=== PATIENT | female | born 1965 | race Caucasian/White ===

== ENCOUNTER 2016-07-01 09:53 | Emergency (ER) | payer MEDICAID, OTHER ==
[2016-07-01 10:07] VITALS: BP 184/98
[2016-07-01] MEDS ORDERED: Ketorolac 60 MG/2 ML SDV IM ONE (10:12)
--- NOTE | 2016-07-01 10:19 | EDM.PDOC ---
ED HPI LOWER BACK PAIN/INJURY - General Chief Complaint: Back Pain or Injury Stated Complaint: BACK PAIN Time Seen by Provider: 07/01/16 09:58 Source of Information: Reports: Patient History Limitations: Reports: No limitations - History of Present Illness INITIAL COMMENTS - FREE TEXT/NARRATIVE: History of present illness: [] Patient has chronic back pain with sciatica going down her right leg and was shoveling this no yesterday exacerbating her pain. She denies any urinary or fecal incontinence, difficulty walking, numbness or tingling of her lower extremity. She took 400 mg of ibuprofen without much relief. Review of systems: As per history of present illness and below otherwise all systems reviewed and negative. Past medical history: As per history of present illness and as reviewed below otherwise noncontributory. Surgical history: As per history of present illness and as reviewed below otherwise noncontributory. Social history: No reported history of drug or alcohol abuse. Family history: As per history of present illness and as reviewed below otherwise noncontributory. Physical exam: General: Well developed, well nourished in NAD HEENT: Atraumatic, normocephalic, pupils reactive, negative for conjunctival pallor or scleral icterus, mucous membranes moist, throat clear, neck supple, nontender, trachea midline. Lungs: Clear to auscultation, breath sounds equal bilaterally, chest nontender. Heart: S1S2, regular, negative for clicks, rubs, or JVD. Abdomen: Soft, nondistended, nontender. Negative for masses or hepatosplenomegaly. Negative for costovertebral tenderness. Pelvis: Stable nontender. Genitourinary: Deferred. Rectal: Deferred. Extremities: Atraumatic, negative for cords or calf pain. Neurovascular unremarkable. Neuro: Awake, alert, oriented. Cranial nerves II through XII unremarkable. Cerebellum unremarkable. Motor and sensory unremarkable throughout. Exam nonfocal. Diagnostics: [] Therapeutics: [] Toradol, Flexeril and in the ED Impression: [] Chronic Low back pain with right-sided sciatica, with exacerbation Plan: [] Increase ibuprofen to 800 mg every 6 hours and Flexeril for spasm followup with primary care physician Definitive disposition and diagnosis as appropriate pending reevaluation and review of above. - Related Data Allergies/ADRs: Allergies Allergy/AdvReac Type Severity Reaction Status Date / Time No Known Allergies Allergy Verified 07/01/16 10:02 Home Meds: Home Meds Albuterol [Ventolin HFA] 1 puff INH DAILY PRN 12/26/13 [History] Cetirizine [ZyrTEC] 1 tab PO DAILY 12/26/13 [History] Lisinopril 1 tab PO DAILY 12/26/13 [History] Cyclobenzaprine [Flexeril] 10 mg PO BID PRN #16 tablet 07/01/16 [Rx] Past Medical History HEENT History: Reports: None Respiratory History: Reports: Asthma Neurological History: Reports: Migraines - Infectious Disease History Infectious Disease History: Reports: Chicken pox - Past Surgical History HEENT Surgical History: Reports: Adenoidectomy Respiratory Surgical History: Reports: None GI Surgical History: Reports: Cholecystectomy Neurological Surgical History: Reports: None Musculoskeletal Surgical History: Reports: Carpal tunnel Social & Family History - Family History Family Medical History: Noncontributory - Tobacco Use Smoking Status *Q: Current Every Day Smoker Years of Tobacco use: 29 Packs/Tins Daily: 1 - Caffeine Use Caffeine Use: Reports: Coffee Caffeine Use Comment: 2 drink/day - Alcohol Use Days Per Week of Alcohol Use: 1 Number of Drinks Per Day: 3 Total Drinks Per Week: 3 - Recreational Drug Use Recreational Drug Use: No ED ROS GENERAL - Review of Systems Review Of Systems: See Below (See history of present illness) ED EXAM,LOWER BACK PAIN/INJURY - Physical Exam Exam: See Below (See history of present illness) Course - Vital Signs Last Recorded V/S: Last Vital Signs Temp 36.6 C 07/01/16 10:03 Pulse 86 07/01/16 10:03 Resp 16 07/01/16 10:03 BP 184/98 H 07/01/16 10:03 Pulse Ox 96 07/01/16 10:03 - Orders/Labs/Meds Orders: Active Orders 24 hr Category Date Time Status Ketorolac [Toradol] Med 07/01/16 10:12 Once 60 mg IM ONETIME ONE Medication Orders Ketorolac Tromethamine (Toradol) 60 mg IM ONETIME ONE Stop: 07/01/16 10:13 Meds: Medications Generic Name Dose Route Start Last Admin Trade Name Freq PRN Reason Stop Dose Admin Ketorolac Tromethamine 60 mg 07/01/16 10:12 Toradol IM 07/01/16 10:13 ONETIME ONE Departure - Departure Time of Disposition: 10:25 Disposition: Home, Self-Care 01 Condition: good Clinical Impression: Acute exacerbation of chronic low back pain Forms: ED Department Discharge Additional Instructions: The following information is given to patients seen in the emergency department who are being discharged to home. This information is to outline your options for follow-up care. We provide all patients seen in our emergency department with a follow-up referral. The need for follow-up, as well as the timing and circumstances, are variable depending upon the specifics of your emergency department visit. If you don't have a primary care physician on staff, we will provide you with a referral. We always advise you to contact your personal physician following an emergency department visit to inform them of the circumstance of the visit and for follow-up with them and/or the need for any referrals to a consulting specialist. The emergency department will also refer you to a specialist when appropriate. This referral assures that you have the opportunity for follow-up care with a specialist. All of these measure are taken in an effort to provide you with optimal care, which includes your follow-up. Under all circumstances we always encourage you to contact your private physician who remains a resource for coordinating your care. When calling for follow-up care, please make the office aware that this follow-up is from your recent emergency room visit. If for any reason you are refused follow-up, please contact the [facility] Emergency Department at and asked to speak to the emergency department charge nurse. Motrin 800 mg every 6 hours as needed for pain, Flexeril 10 mg every 8 hours when necessary 16 tablets no refills [facility] [address] [place] [id number] - My Orders Last 24 Hours: My Active Orders 07/01/16 10:12 Ketorolac [Toradol] 60 mg IM ONETIME ONE - Assessment/Plan Last 24 Hours: My Active Orders 07/01/16 10:12 Ketorolac [Toradol] 60 mg IM ONETIME ONE
== END 2016-07-01 10:40 | disposition home or self-care (01) ==
LOC: MW.ED 09:53
DX: M54.41 Lumbago with sciatica, right side (principal); M79.604 Pain in right leg; F17.210 Nicotine dependence, cigarettes, uncomplicated; Z79.899 Other long term (current) drug therapy; Z90.89 Acquired absence of other organs; Z98.890 Other specified postprocedural states
CPT/HCPCS: 96372; 99283; J1885

== ENCOUNTER 2017-05-25 13:15 | Emergency (ER) | payer BC ==
--- NOTE | 2017-05-25 13:25 | EDM.PDOC ---
ED HPI GENERAL MEDICAL PROBLEM - General Chief Complaint: Respiratory Problem Stated Complaint: FLU-LIKE SYMPTOMS Time Seen by Provider: 05/25/17 13:25 Source of Information: Reports: Patient History Limitations: Reports: No Limitations - History of Present Illness INITIAL COMMENTS - FREE TEXT/NARRATIVE: HISTORY AND PHYSICAL: History of present illness: Patient is a 52-year-old female who presents to the emergency room today with complaints of body aches, fever, cough 2 days. She states that she has not tried any [id number] products. Denies any abdominal pain, nausea, vomiting or diarrhea. Personal history of asthma and has albuterol inhaler which she uses as needed. She has had the flu vaccine this year. Does have a history of smoking, current. Review of systems: As per history of present illness and below otherwise all systems reviewed and negative. Past medical history: As per history of present illness and as reviewed below otherwise noncontributory. Surgical history: As per history of present illness and as reviewed below otherwise noncontributory. Social history: No reported history of drug or alcohol abuse. Family history: As per history of present illness and as reviewed below otherwise noncontributory. Physical exam: Gen.: Well-developed and well-nourished 52-year-old female. Alert and oriented. Nontoxic appearing and in no acute distress. HEENT: Atraumatic, normocephalic, pupils reactive, negative for conjunctival pallor or scleral icterus, mucous membranes moist, throat clear, neck supple, nontender, trachea midline. Lungs: Clear to auscultation, breath sounds equal bilaterally, chest nontender. Heart: S1S2, regular, negative for clicks, rubs, or JVD. Abdomen: Soft, nondistended, nontender. Negative for masses or hepatosplenomegaly. Negative for costovertebral tenderness. Pelvis: Stable nontender. Genitourinary: Deferred. Rectal: Deferred. Extremities: Atraumatic, moves all extremities per self, negative for cords or calf pain. Neurovascular unremarkable. Neuro: Awake, alert, oriented. Cranial nerves II through XII unremarkable. Cerebellum unremarkable. Motor and sensory unremarkable throughout. Exam nonfocal. Patient's oxygen saturation on room air is 93-94%. After DuoNeb O2 is 96%. The influenza and chest x-ray are negative. Due to the patient's history of asthma and smoking and will treat her with a Z-Phillip and Medrol Dosepak. She does have an inhaler have instructed her to use this routinely over the next couple days. She voices understanding and is agreeable to plan of care she denies any questions at this time. Diagnostics: Influenza, chest x-ray Therapeutics: Sri Impression: #1 viral illness #2 Bronchitis Plan: 1. Please take the Z-Phillip and Medrol dosepak as directed. 2. Please use your inhaler routinely over the next 2-3 days. You may then take as needed. 3. Follow-up with your primary care provider in the next 1-2 days. Return to the ED as needed and as discussed. Definitive disposition and diagnosis as appropriate pending reevaluation and review of above. Duration: Day(s): Location: Reports: Chest body aches Pain Score (Numeric/FACES): 7 - Related Data Allergies Allergy/AdvReac Type Severity Reaction Status Date / Time No Known Allergies Allergy Verified 05/25/17 13:30 Home Meds: Home Meds Albuterol [Ventolin HFA] 1 puff INH DAILY PRN 12/26/13 [History] Cetirizine [ZyrTEC] 1 tab PO DAILY 12/26/13 [History] Lisinopril 1 tab PO DAILY 12/26/13 [History] Cyclobenzaprine [Flexeril] 10 mg PO BID PRN #16 tablet 07/01/16 [Rx] Past Medical History HEENT History: Reports: None Respiratory History: Reports: Asthma Neurological History: Reports: Migraines - Infectious Disease History Infectious Disease History: Reports: Chicken Pox - Past Surgical History Musculoskeletal Surgical History: Reports: Carpal Tunnel Social & Family History - Family History Family Medical History: Noncontributory - Tobacco Use Smoking Status *Q: Current Every Day Smoker Years of Tobacco use: 29 Packs/Tins Daily: 1 - Caffeine Use Caffeine Use: Reports: Coffee Caffeine Use Comment: 2 drink/day - Alcohol Use Days Per Week of Alcohol Use: 1 Number of Drinks Per Day: 3 Total Drinks Per Week: 3 - Recreational Drug Use Recreational Drug Use: No ED ROS GENERAL - Review of Systems Review Of Systems: ROS reveals no pertinent complaints other than HPI. ED EXAM, GENERAL - Physical Exam Exam: See Below (See dictation) Course - Vital Signs Last Recorded V/S: Last Vital Signs Temp 99.2 F 05/25/17 13:30 Pulse 119 H 05/25/17 13:30 Resp 18 05/25/17 13:30 BP 141/85 H 05/25/17 13:30 Pulse Ox 94 L 05/25/17 13:30 - Orders/Labs/Meds Orders: Active Orders 24 hr Category Date Time Status RT Aerosol Therapy [RC] ASDIRECTED Care 05/25/17 13:35 Active Meds: Medications Discontinued Medications Generic Name Dose Route Start Last Admin Trade Name Freda PRN Reason Stop Dose Admin Albuterol/Ipratropium 3 ml 05/25/17 13:35 05/25/17 13:38 Duoneb 3.0-0.5 Mg/3 Ml NEB 05/25/17 13:36 3 ml ONETIME ONE Administration Albuterol/Ipratropium Confirm 05/25/17 13:36 Duoneb 3.0-0.5 Mg/3 Ml Administered 05/25/17 13:37 Dose 3 ml .ROUTE .STK-MED ONE Departure - Departure Time of Disposition: 14:43 Disposition: Home, Self-Care 01 Clinical Impression: Viral illness, Bronchitis - Discharge Information Referrals: Yanci Tinoco [employer] [Primary Care Provider] - Forms: ED Department Discharge Additional Instructions: My general discharge The following information is given to patients seen in the emergency department who are being discharged to home. This information is to outline your options for follow-up care. We provide all patients seen in our emergency department with a follow-up referral. The need for follow-up, as well as the timing and circumstances, are variable depending upon the specifics of your emergency department visit. If you don't have a primary care physician on staff, we will provide you with a referral. We always advise you to contact your personal physician following an emergency department visit to inform them of the circumstance of the visit and for follow-up with them and/or the need for any referrals to a consulting specialist. The emergency department will also refer you to a specialist when appropriate. This referral assures that you have the opportunity for follow-up care with a specialist. All of these measure are taken in an effort to provide you with optimal care, which includes your follow-up. Under all circumstances we always encourage you to contact your private physician who remains a resource for coordinating your care. When calling for follow-up care, please make the office aware that this follow-up is from your recent emergency room visit. If for any reason you are refused follow-up, please contact the [facility] Emergency Department at and asked to speak to the emergency department charge nurse. [facility] [place] [id number] 1. Please take the Z-Phillip and Medrol dosepak as directed. 2. Please use your inhaler routinely over the next 2-3 days. You may then take as needed. 3. Follow-up with your primary care provider in the next 1-2 days. Return to the ED as needed and as discussed. - My Orders Last 24 Hours: My Active Orders 05/25/17 13:35 RT Aerosol Therapy [RC] ASDIRECTED - Assessment/Plan Last 24 Hours: My Active Orders 05/25/17 13:35 RT Aerosol Therapy [RC] ASDIRECTED
[2017-05-25] MEDS ORDERED: Albuterol/Ipratropium 3.0-0.5 MG/3 ML Neb Soln NEB ONE (13:35)
[2017-05-25] MEDS ORDERED: Albuterol/Ipratropium 3.0-0.5 MG/3 ML Neb Soln ONE (13:36)
--- NOTE | 2017-05-25 14:29 | CR ---
PA and lateral chest Clinical history: Chest pain and shortness of breath Comparison: prior chest x-ray December 26, 2013 Findings: The costophrenic angles are clear. The cardiac mediastinum is normal and the lungs are joyce r. Given history of chest pain there is no pneumothorax. Impression: Normal chest
[2017-05-25 15:19] VITALS: BP 131/78
== END 2017-05-25 15:00 | disposition home or self-care (01) ==
LOC: MW.ED 13:15
DX: J40 Bronchitis, not specified as acute or chronic (principal); B34.9 Viral infection, unspecified; F17.210 Nicotine dependence, cigarettes, uncomplicated; Z79.899 Other long term (current) drug therapy
CPT/HCPCS: 71046; 71046-26; 87804; 94640; 99283-25

== ENCOUNTER 2019-07-18 18:32 | Emergency (ER) | payer BC ==
[2019-07-18 18:49] VITALS: BP 172/92; PULSE 85
--- NOTE | 2019-07-18 19:19 | EDM.PDOC ---
ED HPI GENERAL MEDICAL PROBLEM - General Chief Complaint: Lower Extremity Injury/Pain Stated Complaint: SICK Time Seen by Provider: 07/18/19 19:15 Source of Information: Reports: Patient History Limitations: Reports: No Limitations - History of Present Illness INITIAL COMMENTS - FREE TEXT/NARRATIVE: HISTORY AND PHYSICAL: History of present illness: Patient is a 54-year-old female presents to the ED With complaint of nail to her foot. Patient states she stepped on a nail or screw that went through her shoe and punctured the bottom of her left foot. Patient states she is not UTD on tetanus. Patient is diabetic Review of systems: As per history of present illness and below otherwise all systems reviewed and negative. Past medical history: As per history of present illness and as reviewed below otherwise noncontributory. Surgical history: As per history of present illness and as reviewed below otherwise noncontributory. Social history: No reported history of drug or alcohol abuse. Family history: As per history of present illness and as reviewed below otherwise noncontributory. Physical exam: General: Patient sitting comfortably in no acute distress and nontoxic appearing HEENT: Atraumatic, normocephalic, pupils reactive, negative for conjunctival pallor or scleral icterus, mucous membranes moist, throat clear, neck supple, nontender, trachea midline. No meningeal signs. Extremities: Small superficial puncture elizabeth to the left plantar surface. No discharge or surrounding erythema or warmth negative for cords or calf pain. Neurovascular unremarkable. Neuro: Awake, alert, oriented. Cranial nerves II through XII unremarkable. Cerebellum unremarkable. Motor and sensory unremarkable throughout. Exam nonfocal. Notes: Diagnostics: none Therapeutics: tdap Prescriptions: Ciprofloxacin Impression: Puncture wound Plan: Keep the area clean as instructed Take antibiotic as instructed Follow up with primary care provider Return to ED as needed as discussed Definitive disposition and diagnosis as appropriate pending reevaluation and review of above. right foot Pain Score (Numeric/FACES): 4 - Related Data Allergies Allergy/AdvReac Type Severity Reaction Status Date / Time No Known Allergies Allergy Verified 07/18/19 18:46 Home Meds: Home Meds Albuterol [Ventolin HFA] 1 puff INH DAILY PRN 12/26/13 [History] Cetirizine [ZyrTEC] 1 tab PO DAILY 12/26/13 [History] Lisinopril 1 tab PO DAILY 12/26/13 [History] Cyclobenzaprine [Flexeril] 10 mg PO BID PRN #16 tablet 07/01/16 [Rx] Ciprofloxacin HCl [Cipro] 500 mg PO BID 7 Days #14 tablet 07/18/19 [Rx] metFORMIN [Glucophage XR] 2,000 mg PO BEDTIME 07/18/19 [History] Past Medical History HEENT History: Reports: None Respiratory History: Reports: Asthma Neurological History: Reports: Migraines Endocrine/Metabolic History: Reports: Diabetes, Type II Hematologic History: Reports: None Immunologic History: Reports: None Oncologic (Cancer) History: Reports: None - Infectious Disease History Infectious Disease History: Reports: Chicken Pox - Past Surgical History Head Surgeries/Procedures: Reports: None HEENT Surgical History: Reports: Adenoidectomy GI Surgical History: Reports: Cholecystectomy Musculoskeletal Surgical History: Reports: Carpal Tunnel Oncologic Surgical History: Reports: None Social & Family History - Family History Family Medical History: Noncontributory - Tobacco Use Smoking Status *Q: Current Every Day Smoker Years of Tobacco use: 32 Packs/Tins Daily: 1 - Caffeine Use Caffeine Use: Reports: Coffee Caffeine Use Comment: 2 drink/day - Recreational Drug Use Recreational Drug Use: No Review of Systems - Review of Systems Review Of Systems: Comprehensive ROS is negative, except as noted in HPI. ED EXAM, GENERAL - Physical Exam Exam: See Below (see dictation) Course - Vital Signs Last Recorded V/S: Last Vital Signs Temp 97.3 F 07/18/19 18:47 Pulse 85 07/18/19 18:47 Resp 17 07/18/19 18:47 BP 172/92 H 07/18/19 18:47 Pulse Ox 96 07/18/19 18:47 - Orders/Labs/Meds Orders: Active Orders 24 hr Category Date Time Status Vaccines to be Administered [RC] PER UNIT ROUTINE Care 07/18/19 19:20 Active Meds: Medications Discontinued Medications Generic Name Dose Route Start Last Admin Trade Name Freq PRN Reason Stop Dose Admin Diphtheria/Tetanus/Acell Pertussis 0.5 ml 07/18/19 19:20 07/18/19 19:24 Adacel IM 07/18/19 19:21 0.5 ml .ONCE ONE Administration Departure - Departure Time of Disposition: 19:22 Disposition: Home, Self-Care 01 Condition: Good Clinical Impression: Puncture wound - Discharge Information Prescriptions: Ciprofloxacin HCl [Cipro] 500 mg PO BID 7 Days #14 tablet Instructions: Puncture Wound, [id number] Referrals: Yanci Tinoco NP [Primary Care Provider] - Forms: ED Department Discharge Additional Instructions: The following information is given to patients seen in the emergency department who are being discharged to home. This information is to outline your options for follow-up care. We provide all patients seen in our emergency department with a follow-up referral. The need for follow-up, as well as the timing and circumstances, are variable depending upon the specifics of your emergency department visit. If you don't have a primary care physician on staff, we will provide you with a referral. We always advise you to contact your personal physician following an emergency department visit to inform them of the circumstance of the visit and for follow-up with them and/or the need for any referrals to a consulting specialist. The emergency department will also refer you to a specialist when appropriate. This referral assures that you have the opportunity for follow-up care with a specialist. All of these measure are taken in an effort to provide you with optimal care, which includes your follow-up. Under all circumstances we always encourage you to contact your private physician who remains a resource for coordinating your care. When calling for follow-up care, please make the office aware that this follow-up is from your recent emergency room visit. If for any reason you are refused follow-up, please contact the [facility] Emergency Department at and asked to speak to the emergency department charge nurse. [facility] [address] [place] [address] [id number] [address] [id number] Keep the area clean as instructed Take antibiotic as instructed Follow up with primary care provider Return to ED as needed as discussed Sepsis Event Note - Evaluation Sepsis Screening Result: No Definite Risk - Focused Exam Vital Signs: Vital Signs Temp Pulse Resp BP Pulse Ox 07/18/19 18:47 97.3 F 85 17 172/92 H 96 Date Exam was Performed: 07/18/19 Time Exam was Performed: 22:49 - My Orders Last 24 Hours: My Active Orders 07/18/19 19:20 Vaccines to be Administered [RC] PER UNIT ROUTINE - Assessment/Plan Last 24 Hours: My Active Orders 07/18/19 19:20 Vaccines to be Administered [RC] PER UNIT ROUTINE
[2019-07-18] MEDS ORDERED: Diphtheria,Pertussis(Acell),Tetanus Vaccine 0.5 ML Syringe IM ONE (19:20)
== END 2019-07-18 19:32 | disposition home or self-care (01) ==
LOC: MW.ED 18:32
DX: S91.332A Puncture wound without foreign body, left foot, initial encounter (principal); J45.909 Unspecified asthma, uncomplicated; E11.9 Type 2 diabetes mellitus without complications; Z79.84 Long term (current) use of oral hypoglycemic drugs; Z79.899 Other long term (current) drug therapy; Z23 Encounter for immunization; W45.0XXA Nail entering through skin, initial encounter
CPT/HCPCS: 90471; 90715; 99283